=== PATIENT | female | born 1995 | race Caucasian/White ===

== ENCOUNTER 2017-12-18 10:42 | Emergency (ER) | payer SELFPAY ==
[2017-12-18 10:50] VITALS: BP 134/90; BMI 18.3
--- NOTE | 2017-12-18 11:23 | DR.GENAD ---
HPI - PCP Primary Care Physician: NFD - Complaint/Symptoms Chief Complaint Doctors Comments: Patient presents with [facility] for a CT braine due to a hisitory of a neuroepileptic Syndrome several years ago. She has a history of substance abuse and suicidal history manifested by multiple self inflicted cuts on upper extremities. She admits to substance abuse treatment of two weeks duration. She denies being seen recently but was seen in [facility] several years ago. She denies any symptoms at this time. She is alert in no distress. Chief Complaint:: PATIENT STATED THAT HER PUPILS ARE GOING BACK AND FORTH WITH 2 DIFFERNET SIZES. SHE STATED THAT THIS HAS HAPPENED IN THE PAST. - Source History Provided: Patient - Mode of Arrival Mode of Arrival: Ambulatory - Timing Onset of Chief Complaint: 12/18/17 PMH - PMH Past Medical History: Yes Past Medical History Comment: CELIAC DISEASE Past Surgical History: Yes Surgical History: Appendectomy, Ortho Surgery, Tonsillectomy - Family History History of Family Medical Conditions: Yes - Social History Does patient currently use any type of tobacco product: No Have you used tobacco products in the last 12 months: No Type of Tobacco Use: None Does any household member use tobacco: No Alcohol Use: None Do you use any recreational Drugs:: No Lives With: Other Lives Where: [facility] - infectious screening In the last 2 months have you had wt loss of >10#?: NO Have you had fever, night sweats or hemotysis?: No Have you traveled outside the country in the last 6 months?: No Isolation: Standard ROS - Review of Systems Constitutional: No Symptoms Reported Eyes: No Symptoms Reported ENTM: No Symptoms Reported Respiratoy: No Symptoms Reported Cardiovascular: No Symptoms Reported Gastrointestinal/Abdominal: No Symptoms Reported Genitourinary: No Symptoms Reported Neurological: No Symptoms Reported Musculoskeletal: No Symptoms Reported Integumentary: No Symptoms Reported Hematologic/Lymphatic: No Symptoms Reported Endocrine: No Symptoms Reported Psychiatric: No Symptoms Reported All Other Systems: Reviewed and Negative PE - Vital Signs Vitals: Pulse Rate 88 Respiratory Rate 20 Blood Pressure 134/90 O2 Sat by Pulse Oximetry 100 - General Limitations: No Limitations General Appearance: Alert, In No Apparent Distress - Head Head Exam: Normal Inspection, Atraumatic - Eyes Eye exam: Normal Appearance, PERRL, EOMI - ENT ENT Exam: Normal Exam External Ear Exam: Normal External Inspection TM/Canal Exam: Bilateral Normal Nose Exam: Normal Nose Exam Mouth Exam: Normal Inspection Throat Exam: Normal Inspection - Neck Neck Exam: Normal Inspection - Chest Chest Inspection: Normal Inspection - Respiratory Respiratory Exam: Normal Lung Sounds Bilat Respiratory Exam: Bilateral Clear to Auscultation - Cardiovascular Cardiovascular Exam: Regular Rate, Normal Rhythm - Abdominal Exam Abdominal Exam: Normal Inspection, Normal Bowel Sounds Abdominal Tenderness: negative: RUQ, RLQ, LUQ, LLQ, Epigastrium, Suprapubic, Diffuse, Mild, Moderate, Severe, Other - Extremities Extremities Exam: Other (multiple old self inflicted mutilation of bilateral upper extremities) - Back Back Exam: Normal Inspection - Neurologic Neurological Exam: Alert, Oriented X3, CN II-XII Intact - Psychiatric Psychiatric Exam: Normal Affect, Normal Mood - Skin Skin Exam: Warm, Dry, Intact, Other (Multiple old self inflicted mutilation of upper extremities.) Course - Reevaluation 1st: Unchanged ROR - Labs Reviewed Result Diagrams: 12/18/17 11:57 12/18/17 11:57 Laboratory: WBC 5.1 X10^3/uL (3.6-10.0) 12/18/17 11:57 RBC 4.67 X10^6/uL (3.5-5.4) 12/18/17 11:57 Hgb 14.6 g/dL (12.0-16.0) 12/18/17 11:57 Hct 42.3 % (36.0-47.0) 12/18/17 11:57 MCV 90.6 fL (80.0-100.0) 12/18/17 11:57 MCH 31.3 pg (27.0-34.0) 12/18/17 11:57 MCHC 34.6 g/dL (33.0-35.0) 12/18/17 11:57 RDW 13.4 % (11.6-16.5) 12/18/17 11:57 Plt Count 282 X10^3/uL (150.0-450.0) 12/18/17 11:57 MPV 7.3 fL (7.4-11.0) L 12/18/17 11:57 Neut % (Auto) 52.5 % (42.0-75.0) 12/18/17 11:57 Lymph % (Auto) 32.8 % (21.0-51.0) 12/18/17 11:57 [place] % (Auto) 11.3 % (0.0-13.0) 12/18/17 11:57 Eos % (Auto) 2.2 % (0.9-2.9) 12/18/17 11:57 Baso % (Auto) 1.2 % (0.2-1.0) H 12/18/17 11:57 Neut # (Auto) 2.7 x10^3/uL (2.2-4.8) 12/18/17 11:57 Lymph # (Auto) 1.7 X10^3/uL (1.3-2.9) 12/18/17 11:57 [place] # (Auto) 0.6 x10^3/uL (0.3-0.8) 12/18/17 11:57 Eos # (Auto) 0.1 x10^3/uL (0.0-0.2) 12/18/17 11:57 Baso # (Auto) 0.1 X10^3/uL (0.0-0.1) 12/18/17 11:57 Absolute Nucleated RBC 0.0 /100WBC 12/18/17 11:57 Sodium 141 mmol/L (136-145) 12/18/17 11:57 Corrected Sodium TNP 12/18/17 11:57 Potassium 3.6 mmol/L (3.5-5.1) 12/18/17 11:57 Chloride 100 mmol/L (98-107) 12/18/17 11:57 Carbon Dioxide 31.6 mmol/L (21-32) 12/18/17 11:57 BUN 7 mg/dL (7-18) 12/18/17 11:57 Creatinine 0.71 mg/dL (0.55-1.02) 12/18/17 11:57 Est GFR (MDRD) Af Amer > 60 (>60) 12/18/17 11:57 Est GFR (MDRD) Non-Af > 60 (>60) 12/18/17 11:57 Glucose 95 mg/dL (65-99) 12/18/17 11:57 Calcium 8.9 mg/dL (8.5-10.1) 12/18/17 11:57 Specimen Type Clean catch urine 12/18/17 11:57 Urine Color Yellow (YELLOW) 12/18/17 11:57 Urine Appearance Clear (CLEAR) 12/18/17 11:57 Urine pH 7.0 (5.0 - 8.0) 12/18/17 11:57 Ur Specific [place] 1.010 (1.000-1.030) 12/18/17 11:57 Urine Protein Negative (NEGATIVE) 12/18/17 11:57 Urine Glucose (UA) Negative (NEGATIVE) 12/18/17 11:57 Urine Ketones Negative (NEGATIVE) 12/18/17 11:57 Urine Occult Blood Negative (NEGATIVE) 12/18/17 11:57 Urine Nitrite Negative (NEGATIVE) 12/18/17 11:57 Urine Bilirubin Negative (NEGATIVE) 12/18/17 11:57 Urine Urobilinogen Normal (NORMAL) 12/18/17 11:57 Ur Leukocyte Esterase Negative (NEGATIVE) 12/18/17 11:57 - Diagnosis Discharge Problem: History of neuroleptic malignant syndrome - Discharge Plan Condition: Stable - Follow ups/Referrals Follow ups/Referrals: NFD,None [Primary Care Provider] - 3 days - Instructions
[2017-12-18 12:03] LABS: BILIRUBIN,URINE NEGATIVE (NEGATIVE); BLOOD/HEMOGLOBIN,URINE NEGATIVE (NEGATIVE); GLUCOSE, URINE NEGATIVE (NEGATIVE); KETONES,URINE NEGATIVE (NEGATIVE); LEUKOCYTE ESTERASE ,URINE NEGATIVE (NEGATIVE); NITRITES,URINE NEGATIVE (NEGATIVE); PROTEIN,URINE NEGATIVE (NEGATIVE); UROBILINOGEN,URINE NORMAL (NORMAL)
[2017-12-18 12:05] LABS: BASOPHILS # (AUTO) 0.1 X10^3/uL (0.0-0.1); BASOPHILS % (AUTO) 1.2 % (0.2-1.0); EOSINOPHILS # (AUTO) 0.1 x10^3/uL (0.0-0.2); EOSINOPHILS % (AUTO) 2.2 % (0.9-2.9); HEMATOCRIT 42.3 % (36.0-47.0); HEMOGLOBIN 14.6 g/dL (12.0-16.0); LYMPHOCYTES # (AUTO) 1.7 X10^3/uL (1.3-2.9); LYMPHOCYTES % (AUTO) 32.8 % (21.0-51.0); MEAN CORPUSCULAR HEMOGLOBIN 31.3 pg (27.0-34.0); MEAN CORPUSCULAR HGB CONC 34.6 g/dL (33.0-35.0); MEAN CORPUSCULAR VOLUME 90.6 fL (80.0-100.0); MEAN PLATELET VOLUME 7.3 fL (7.4-11.0); MONOCYTES # (AUTO) 0.6 x10^3/uL (0.3-0.8); MONOCYTES % (AUTO) 11.3 % (0.0-13.0); NEUTROPHILS # (AUTO) 2.7 x10^3/uL (2.2-4.8); NEUTROPHILS % (AUTO) 52.5 % (42.0-75.0); PLATELET COUNT 282 X10^3/uL (150.0-450.0); RED BLOOD COUNT 4.67 X10^6/uL (3.5-5.4); RED CELL DISTRIBUTION WIDTH 13.4 % (11.6-16.5); WHITE BLOOD COUNT 5.1 X10^3/uL (3.6-10.0)
[2017-12-18 12:07] LABS: APPEARANCE,URINE CLEAR (CLEAR); COLOR,URINE YELLOW (YELLOW)
[2017-12-18 12:13] LABS: BLOOD UREA NITROGEN 7 mg/dL (7-18); CALCIUM 8.9 mg/dL (8.5-10.1); CARBON DIOXIDE 31.6 mmol/L (21-32); CHLORIDE 100 mmol/L (98-107); CREATININE 0.71 mg/dL (0.55-1.02); SODIUM 141 mmol/L (136-145); eGFR BLACK RACES > 60 (>60); eGFR NON BLACK RACES > 60 (>60)
== END 2017-12-18 13:07 | disposition home or self-care (01) ==
LOC: ER 10:55
DX: G21.0 Malignant neuroleptic syndrome (principal)
CPT/HCPCS: 36415; 80048; 81003; 85025; 99282; 99283